=== PATIENT | female | born 1975 | race Caucasian/White ===

== ENCOUNTER 2019-12-19 02:38 | Emergency (ER) | payer BC ==
[~2019-12-19] VITALS: Ht 167.6 cm; Wt 59.0 kg
[~2019-12-19 02:38] MED LIST: DAYPRO600 M1 PO
[2019-12-19 02:43] VITALS: BP 91/69
[2019-12-19] MEDS ORDERED: Synthroid,Lev150 MCG PO (02:47)
[2019-12-19] MEDS ORDERED: METFORMIN XR500 MG PO (02:47)
[2019-12-19] MEDS ORDERED: LISINOPRIL2.5 MG PO (02:47)
[2019-12-19] MEDS ORDERED: ROSUVASTATIN CA20 MG PO (02:48)
[2019-12-19] MEDS ORDERED: OMEPRAZOLE MAGN20 MG PO (02:48)
[2019-12-19] MEDS ORDERED: LEVEMIR FL100 UNIT/1 SC (02:49)
[2019-12-19] MEDS ORDERED: AMOXICILLIN500 M2 PO (03:40)
== END 2019-12-19 04:00 | disposition home or self-care (01) ==
LOC: ED 02:38
DX: K04.7 Periapical abscess without sinus (principal); K08.89 Other specified disorders of teeth and supporting structures

== ENCOUNTER → 2022-08-01 | Outpatient (CLI) | payer BC ==
[~2022-08-01] MED LIST changes: +AMOX-CLAV 875-1 EACH PO; +AMOXICILLIN500 M2 PO; +Carafate1 GM PO; +HUMALOG100 UNIT/1 SC; +HYDROXYZINE HCL25 MG PO; +JANUMET XR 50-1 EACH PO; +LEVEMIR FL100 UNIT/1 SC; +LEVOTHYROXINE100 MC1 PO; +LISINOPRIL2.5 MG PO; +METFORMIN XR500 MG PO; +OMEPRAZOLE MAGN20 MG PO; +PAROXETINE HCL20 MG PO; +ROSUVASTATIN CA20 MG PO; +SODIUM-POTASSI1 EACH PO; +Synthroid,Lev150 MCG PO; +VITAMIN D350 MC2 PO
== END | disposition home or self-care (01) ==
LOC: US 06-17 14:00
PROVIDERS: ATTEND Nurse Practitioner
DX: E04.9 Nontoxic goiter, unspecified (principal)

== ENCOUNTER → 2022-08-02 | Outpatient (CLI) | payer BC | END | disposition home or self-care (01) | LOC: RESCLI 00:15 | PROVIDERS: ATTEND Internal Medicine | DX: E11.9 Type 2 diabetes mellitus without complications (principal); I10 Essential (primary) hypertension; E78.5 Hyperlipidemia, unspecified; K21.9 Gastro-esophageal reflux disease without esophagitis; E03.9 Hypothyroidism, unspecified; F41.9 Anxiety disorder, unspecified; E55.9 Vitamin D deficiency, unspecified; F17.210 Nicotine dependence, cigarettes, uncomplicated; Z98.890 Other specified postprocedural states; Z79.899 Other long term (current) drug therapy ==

== ENCOUNTER → 2024-11-18 | Outpatient (CLI) | payer BC ==
[2024-11-18 15:46] LABS: BUN 6 mg/dl (9-23); FREE T4 1.53 ng/dl (0.89-1.76); LDL CHOLESTEROL 48 mg/dL (9-159); SGPT/ALT 12 U/L (5-49)
== END | disposition home or self-care (01) ==
LOC: LAB 15:07
PROVIDERS: Student in an Organized Health Care Education/Training Program; ATTEND Internal Medicine Endocrinology, Diabetes & Metabolism
DX: E10.43 Type 1 diabetes mellitus with diabetic autonomic (poly)neuropathy (principal); E03.9 Hypothyroidism, unspecified; E78.5 Hyperlipidemia, unspecified